=== PATIENT | male | born 1970 | race Caucasian/White ===

== ENCOUNTER 2020-02-26 10:18 | Emergency (ER) | payer BC, OTHER ==
[2020-02-26 10:41] LABS: BASOPHILS % (AUTO) 1.2 % (0.0-5.0); EOSINOPHILS % (AUTO) 4.4 % (0.0-8.0); HEMATOCRIT 39.9 % (42-54); MEAN CORPUSCULAR HEMOGLOBIN 31.5 pg (27.0-33.0); MEAN CORPUSCULAR HGB CONC 34.3 g/dL (32.0-36.0); MEAN CORPUSCULAR VOLUME 91.7 fL (79-99); MONOCYTES % (AUTO) 8.5 % (3.0-13.0); NEUTROPHILS % (AUTO) 67.6 % (40.0-77.0); PLATELET COUNT (AUTO) 213 K/uL (130-400); RED BLOOD CELL COUNT(AUTO) 4.35 MIL/uL (4.50-6.20); RED CELL DISTRIBUTION WIDTH 11.3 % (11.0-15.5); WHITE BLOOD COUNT (AUTO) 6.6 K/uL (4.8-10.8)
[2020-02-26] MEDS ORDERED: ASPIRIN 325 MG TABLET ONE (10:42)
[2020-02-26] MEDS ORDERED: NITROGLYCERIN 1GM/1 INCH PACKET TD ONE (10:42)
[2020-02-26 11:06] LABS: POTASSIUM 3.9 mmol/L (3.5-5.1)
== END 2020-02-26 14:05 | disposition home or self-care (01) ==
LOC: EDH 10:18
DX: R07.89 Other chest pain (principal); Z90.49 Acquired absence of other specified parts of digestive tract
CPT/HCPCS: 36415; 71045; 80048; 84484; 85025; 93005

== ENCOUNTER 2023-08-09 08:50 | Emergency (ER) | payer BC ==
[~2023-08-09] VITALS: Ht 190.5 cm; Wt 117.9 kg
[2023-08-09 09:39] LABS: HEMATOCRIT 42.8 % (42-54); MEAN CORPUSCULAR HEMOGLOBIN 31.5 pg (27.0-33.0); MEAN CORPUSCULAR VOLUME 89.9 fL (79-99); RED BLOOD CELL COUNT(AUTO) 4.76 MIL/uL (4.50-6.20); RED CELL DISTRIBUTION WIDTH 11.9 % (11.0-15.5); WHITE BLOOD COUNT (AUTO) 6.3 K/uL (4.8-10.8)
[2023-08-09 09:47] LABS: POTASSIUM 4.1 mmol/L (3.5-5.1)
[2023-08-09] MEDS ORDERED: AMLO-257 PO (10:20)
[2023-08-09 10:32] LABS: APPEARANCE,URINE CLEAR (CLEAR); BILIRUBIN,URINE NEGATIVE (NEGATIVE); GLUCOSE, URINE (UA) NEGATIVE (NEGATIVE); KETONES,URINE NEGATIVE (NEGATIVE); LEUKOCYTE ESTERASE ,URINE NEGATIVE Leu/uL (NEGATIVE); NITRATE,URINE NEGATIVE (NEGATIVE); OCCULT BLOOD,URINE NEGATIVE (NEGATIVE); PROTEIN,URINE NEGATIVE (NEGATIVE); UROBILINOGEN,URINE 0.2 mg/dL (0.2-1.0)
[2023-08-09 10:33] LABS: ADD UA MICROSCOPIC NO; COLOR,URINE LIGHT-YELLOW (YELLOW)
[2023-08-09 12:12] VITALS: BP 159/98; PULSE 67; RESP 12; O2SAT 98
[2023-08-09] MEDS ORDERED: LOSA50TA64 PO (12:13)
== END 2023-08-09 12:31 | disposition home or self-care (01) ==
LOC: EDH 08:50
DX: I10 Essential (primary) hypertension (principal); Z90.49 Acquired absence of other specified parts of digestive tract; Z91.012 Allergy to eggs
CPT/HCPCS: 36415; 71045; 80048; 81003; 84484; 85027; 93005

== ENCOUNTER → 2024-05-31 | Emergency (ER) | payer BC ==
[~2024-05-31] VITALS: Ht 190.5 cm; Wt 120.2 kg
[~2024-05-31] MED LIST: LOSA50TA64 PO
[2024-05-31 09:19] VITALS: BP 148/98; PULSE 78; RESP 16; TEMP 97.8
== END | disposition left against medical advice (07) ==
LOC: EDH 09:18
DX: T78.40XA Allergy, unspecified, initial encounter (principal); Z53.21 Procedure and treatment not carried out due to patient leaving prior to being seen by health care provider; X58.XXXA Exposure to other specified factors, initial encounter

== ENCOUNTER → 2025-03-23 | Outpatient (CLI) | payer SELFPAY ==
[~2025-03-23] MED LIST changes: +IOHEXOL 350 MG/ML 100ML INFUS..BTL IV ONE
--- NOTE | 2025-03-27 20:10 | CARDIOLOGY ---
RAD REPORT: CORNARY CT ANGIO RADIOLOGY REPORT: CORONARY CT ANGIOGRAPHY DATE: Mar 27, 2025 QUALITY: Excellent CLINICAL HISTORY AND INDICATION: [ elevated CACs ] TECHNIQUE: After obtaining a preliminary ophthalmic medical technologist image, contrast imaging performed on an [employer] [id number] scanner. A dedicated, limited window, coronary imaging protocol was used, with single breath-hold, retrospective ECG gating, and automated arrhythmia rejection. 100 cc of low osmolar contrast agent: Omnipaque 350 was delivered via a 18-gauge IV catheter in the right antecubital fossa, using a power injector and followed by 60 cc of normal saline bolus as a chaser. Collimated images were reformatted at 0.5 mm intervals, and sent to an offline independent workstation for interpretation, using 3D anatomic reconstructions: Curved multiplanar reconstructions, maximum intensity projections, and multiplanar imaging. 10 mg IV metoprolol was administered prior to scanning. 0.8 mg SL nitroglycerin was given. CORONARY ARTERY DESCRIPTIONS: The coronary arteries arise in normal position. Left main coronary artery: Normal caliber vessel that bifurcates into the LAD and LCx. No stenosis. Left anterior descending coronary artery: Normal caliber vessel and gives rise to diagonal and septal branches. There is calcified plaque in the ostial and mid LAD with 30-40% stenosis. Left circumflex coronary artery: Normal caliber, nondominant and gives rise to two OM branches. No stenosis. Right coronary artery: Large, dominant vessel giving rise to the PL and PDA branches. There is calcified plaque in the distal RCA with 30-40% stenosis. CAD-RADs: 2, mild non-obstructive CAD. Thoracic Aorta: Normal diameter. Lila Mackay MD Cardiovascular Disease [facility] ILLA MACKAY MD Mar 27, 2025 20:10
== END | disposition home or self-care (01) ==
LOC: RAH 08:14
PROVIDERS: ATTEND Family Medicine
DX: I25.10 Atherosclerotic heart disease of native coronary artery without angina pectoris (principal)
CPT/HCPCS: 75574; J3490; Q9967